=== PATIENT | female | born 1980 ===

== ENCOUNTER 2021-03-21 12:30 | Inpatient (IN) | payer OTHER ==
[~2021-03-21] VITALS: Ht 165.1 cm; Wt 3.2 kg
[2021-03-28] MEDS ORDERED: PRENATAL TABLE1 EAC1 PO (17:00)
[2021-03-28] MEDS ORDERED: TRANDATE300 MG PO (17:00)
[2021-03-28] MEDS ORDERED: CHILDREN'S ASPI81 MG PO (17:01)
[2021-03-28] MEDS ORDERED: INTEGRA CAPSUL1 EACH PO (17:01)
[2021-04-01] MEDS ORDERED: KETO10TA2 PO (09:07)
[2021-04-01] MEDS ORDERED: PERCOCET 5-3251 EACH PO (09:09)
== END 2021-04-01 12:21 | disposition home or self-care (01) | DRG 787 ==
LOC: OB/GYN 03-28 15:26 → LDR 03-28 15:26 → OB/GYN 03-29 12:30 → O/R 03-29 21:42 → OB/GYN 03-30 00:11
PROVIDERS: ADMIT Obstetrics & Gynecology Maternal & Fetal Medicine; ATTEND Obstetrics & Gynecology Maternal & Fetal Medicine
PROC: 3E0P7VZ Introduction of Hormone into Female Reproductive, Via Natural or Artificial Opening (ICD-10-PCS; 2021-03-28)
PROC: 4A1HXFZ Monitoring of Products of Conception, Cardiac Rhythm, External Approach (ICD-10-PCS; 2021-03-28)
PROC: 10D00Z1 Extraction of Products of Conception, Low, Open Approach (ICD-10-PCS; principal; 2021-03-29 18:00)
DX: O62.0 Primary inadequate contractions (principal); O10.02 Pre-existing essential hypertension complicating childbirth; O61.0 Failed medical induction of labor; O99.214 Obesity complicating childbirth; E66.01 Morbid (severe) obesity due to excess calories; Z3A.39 39 weeks gestation of pregnancy; Z37.0 Single live birth